=== PATIENT | female | born 1945 | race Caucasian/White ===

== ENCOUNTER → 2019-06-01 | Outpatient (CLI) | payer MEDICARE, BC | LOC: LB.LAB 15:41 | PROVIDERS: ATTEND Internal Medicine Interventional Cardiology | DX: I10 Essential (primary) hypertension (principal); I25.10 Atherosclerotic heart disease of native coronary artery without angina pectoris | CPT/HCPCS: 36415; 80048 ==

== ENCOUNTER 2022-06-07 17:27 | Emergency (ER) | payer MEDICARE, BC ==
[2022-06-07 17:52] VITALS: PULSE 83
[2022-06-07] MEDS ORDERED: Amoxicillin 500 MG Cap ONE (18:00)
== END 2022-06-07 18:15 | disposition home or self-care (01) ==
LOC: LB.ED 17:27
DX: S50.872A Other superficial bite of left forearm, initial encounter (principal); S50.871A Other superficial bite of right forearm, initial encounter; W54.0XXA Bitten by dog, initial encounter
CPT/HCPCS: 99283; A9270-GY